=== PATIENT | female | born 2000 | race Hispanic/Latino ===

== ENCOUNTER 2021-01-05 | Emergency (ER) | payer OTHER ==
[~2021-01-05] MED LIST: NO HOME MEDS; ORAPRED15 MG/5 ML PO
[2021-01-05 16:33] LABS: URINE BILIRUBIN - DIPSTICK NEGATIVE (NEGATIVE); URINE BLOOD DIPSTICK NEGATIVE (NEGATIVE); URINE COLOR YELLOW; URINE GLUCOSE - DIPSTICK NEGATIVE (NEGATIVE); URINE KETONE 15 mg/dL (NEGATIVE); URINE LEUK ESTERASE NEGATIVE (NEGATIVE); URINE PROTEIN - DIPSTICK 30 mg/dL (NEG-TRACE); URINE UROBILINOGEN - DIPSTICK 0.2 E.U./dL (0.2)
[2021-01-05 16:36] LABS: URINE NITRITE - DIPSTICK NEGATIVE (Negative)
[2021-01-05 16:38] LABS: URINE RBC 0-2 RBC/hpf (0-5); URINE SQUAMOUS EPITHELIAL CELL FEW EPI/hpf (0-FEW); URINE WBC 0-2 WBC/hpf (0-5)
[2021-01-05 20:27] LABS: HEMATOCRIT 33.3 % (37.0-47.0); HEMOGLOBIN 9.4 g/dl (12.0-16.0); IMMATURE GRANULOCYTES 0.3 % (0.0-5.0); MEAN CELL VOLUME 68.2 fL CALC (80.0-100.0); MEAN CORPUSCULAR HGB 19.3 pG CALC (26.0-32.0); MEAN CORPUSCULAR HGB CONC 28.2 g/dL CAL (32.0-36.0); NEUT# 4.14 thou/uL (2.00-7.15); RED BLOOD COUNT 4.88 mill/uL (4.20-5.60)
[2021-01-05 20:38] LABS: ALBUMIN 4.3 g/dL (3.2-5.0); BILIRUBIN, TOTAL 0.7 mg/dL (0.0-1.4); BUN 10 mg/dL (7-17); BUN/CREATININE RATIO 17 (12-20 (CALC)); CHLORIDE 100 mmol/l (95-108); CREATININE 0.6 mg/dL (0.5-1.0); GFR > 60 ML/MIN (>=60 (CALC)); GFR FOR AFR.AMER. > 60 ML/MIN (>=60 (CALC)); POTASSIUM 3.5 mmol/l (3.5-5.1); SGOT/AST 35 u/l (14-36); SODIUM 137 mmol/l (137-146); TOTAL PROTEIN 7.8 g/dL (6.3-8.2)
[2021-01-05 20:39] LABS: ALKALINE PHOSPHATASE 57 u/l (38-126); ANION GAP 15 (6-22 (CALC)); CARBON DIOXIDE 26 mmol/l (22-30)
[2021-01-05] MEDS ORDERED: PROVENTIL HFA IN (23:11)
[2021-01-05] MEDS ORDERED: ZITHROMAX250 MG PO (23:11)
[2021-01-05] MEDS ORDERED: DEXAMETHASON6 MG PO (23:11)
== END 2021-01-05 23:42 | disposition home or self-care (01) | DRG 177 ==
PROVIDERS: Emergency Medicine
DX: U07.1 COVID-19 (principal); J12.82 Pneumonia due to coronavirus disease 2019
CPT/HCPCS: Q9967